=== PATIENT | female | born 1955 | race Caucasian/White ===

== ENCOUNTER 2019-10-12 07:37 | Outpatient (CLI) | payer MEDICARE | END 2019-10-12 07:38 | disposition critical access hospital (66) | LOC: EMS 07:37 | PROVIDERS: ATTEND Surgery | DX: R40.4 Transient alteration of awareness (principal); M54.2 Cervicalgia; R03.0 Elevated blood-pressure reading, without diagnosis of hypertension; R51 Headache; R11.2 Nausea with vomiting, unspecified; R42 Dizziness and giddiness | CPT/HCPCS: A0425; A0429 ==

== ENCOUNTER 2019-10-12 08:12 | Emergency (ER) | payer MEDICARE ==
[2019-10-12] MEDS ORDERED: SODIUM CHLORIDE 0.9% 1,000 ML IV STA (08:34)
--- NOTE | 2019-10-12 08:36 | ED Physician Documentation ---
PD HPI SYNCOPE - Stated complaint Stated Complaint: NECK PX - History obtained from History obtained from: Patient, Family (), EMS - History of Present Illness Witnessed: Witnessed Timing - onset: Yesterday (The patient was brought in by EMS after her called due to a apparent syncopal episode. She apparently was unresponsive after feeling of nausea and has this morning and last night been having some neck pain and some headache. She been having some nausea and vomiting in the last couple of days. The told the medics the patient suddenly went unresponsive and had gurgling type of breathing and was squeezing his whole arm and hand strongly. This lasted for a minute or so and then she seemed to stop and then was opening her eyes but not really talking. By EMS arrival the patient was doing better and was alert and talking to them though a bit sleepy. She remained that way en route without any noted focal deficits. She complained of pain in the neck and back of her head. There is no reported trauma.) Preceding symptoms: Headache (and neck pain), Nausea / vomiting (the past 1-2 days), Light headed (for 1-2 days). No: Chest pain, Abdominal pain Associated symptoms: Headache, Diaphoresis. No: Chest pain, Dyspnea, Abdominal pain Contributing factors: Other (On arrival the patient was talkative and answering questions. She denied any pain in her chest or belly or any blurred vision. She had some nausea feeling and also some pain in her back of her head and neck and some frontal area. She states that had been for a day or 2. She denies any recent change in medicines.). No: Recent med change (The medications with her are for blood pressure lisinopril and propranolol and also apparent the depression of antidepressant and hydroxyzine. They were all filled in mid August and we will find out if they were new prescriptions at that point or renewals.) Injury occurred: No: Fell, Head injury Similar symptoms before: Has not had sx before Recently seen: Not recently seen Review of Systems Unable to obtain: AMS Constitutional: denies: Fever Nose: denies: Rhinorrhea / runny nose, Congestion Throat: denies: Sore throat Cardiac: denies: Chest pain / pressure Respiratory: denies: Cough GI: reports: Nausea, Vomiting. denies: Abdominal Pain, Diarrhea Skin: denies: Rash Neurologic: reports: Syncope (this morning), Headache. denies: Focal weakness, Numbness, Head injury PD PAST MEDICAL HISTORY - Past Medical History Cardiovascular: Hypertension Respiratory: None Neuro: None - Present Medications Home Medications: Ambulatory Orders Medication Instructions Recorded Confirmed Fluoxetine HCl [Prozac] 40 mg PO DAILY 10/12/19 10/12/19 Propranolol [Inderal] 40 mg PO DAILY 10/12/19 10/12/19 hydrOXYzine PAMOATE [Vistaril] 25 mg PO TID PRN 10/12/19 10/12/19 lisinopriL [Lisinopril] 20 mg PO DAILY 10/12/19 10/12/19 - Allergies Allergies/Adverse Reactions: Allergies Allergy/AdvReac Type Severity Reaction Status Date / Time amoxicillin Allergy Rash Verified 10/12/19 09:30 Penicillins Allergy Rash Verified 10/12/19 09:30 PD ED PE NORMAL - Vitals Vital signs reviewed: Yes - General General: Well developed/nourished, Other (complains of some headache. Seems distant in gaze but follow commands. No focal weakness noted. ). No: Alert and oriented X 3 (eyes open, somewhat vacant look. Answers to name and place, but sluggishly. Follow commands. ) - HEENT HEENT: Pharynx benign, Other (normal gag reflex) - Neck Neck: Supple, no meningeal sign, No adenopathy, No JVD, No bruit - Cardiac Cardiac: RRR, No murmur - Respiratory Respiratory: Clear bilaterally - Abdomen Abdomen: Soft, Non tender - Back Back: No CVA TTP - Derm Derm: Normal color, Warm and dry - Extremities Extremities: No deformity, No tenderness to palpate, Normal ROM s pain, No edema, No calf tenderness / cord - Neuro Neuro: Alert and oriented X 3, glass scullion 2-12 intact, No motor deficit, Normal speech Eye Opening: Spontaneous Motor: Obeys Commands Verbal: Confused GCS Score: 14 Results - Vitals Vitals: Oxygen O2 Source Room air - EKG (time done) 08:47 Rate: Rate (enter#) (61) Rhythm: NSR [place]: Normal Intervals: Normal OK QRS: Normal Ischemia: Normal ST segments. No: ST elevation c/w ischemia, ST depression - Labs Labs: Laboratory Tests 10/12/19 10/12/19 10/12/19 08:45 08:45 08:45 WBC 13.2 H RBC 5.28 Hgb 14.9 Hct 45.8 MCV 86.7 MCH 28.2 MCHC 32.5 RDW 14.4 Plt Count 323 MPV 10.2 Neut # (Auto) 9.0 H Lymph # (Auto) 2.9 [place] # (Auto) 0.9 Eos # (Auto) 0.3 Baso # (Auto) 0.1 Absolute Nucleated RBC 0.00 Nucleated RBC % 0.0 PT INR APTT Sodium 135 Potassium 3.1 L Chloride 101 Carbon Dioxide 24 Anion Gap 10.0 BUN 14 Creatinine 0.8 Estimated GFR (MDRD) 72 L Glucose 197 H Calcium 9.4 Magnesium 2.0 Total Bilirubin 0.8 AST 28 ALT 25 Alkaline Phosphatase 54 Troponin I High Sens 17.7 H* Total Protein 8.6 H Albumin 4.4 Globulin 4.2 Albumin/Globulin Ratio 1.0 Lipase 34 Salicylates < 6.0 Acetaminophen < 10 L Ethyl Alcohol < 5.0 10/12/19 08:45 WBC RBC Hgb Hct MCV MCH MCHC RDW Plt Count MPV Neut # (Auto) Lymph # (Auto) [place] # (Auto) Eos # (Auto) Baso # (Auto) Absolute Nucleated RBC Nucleated RBC % PT 12.7 H INR 1.1 APTT 26.9 Sodium Potassium Chloride Carbon Dioxide Anion Gap BUN Creatinine Estimated GFR (MDRD) Glucose Calcium Magnesium Total Bilirubin AST ALT Alkaline Phosphatase Troponin I High Sens Total Protein Albumin Globulin Albumin/Globulin Ratio Lipase Salicylates Acetaminophen Ethyl Alcohol - Rads (name of study) head CT Radiology: EMP read contemporaneously (Frontal bleed with subarachnoid extension. No midline shift. ), See rad report head CTA Radiology: See rad report (results pending) PD MEDICAL DECISION MAKING - ED course Complexity details: re-evaluated patient (still with confusion and slow responses. Normal breathing pattern and gag reflex. BP lower slowly with IV meds), considered differential (Concern for hypertensive emergency versus medication side effect such as serotonin syndrome. Also with the headache and neck pain, would be concern for intra-parenchymal or intra-cranial bleeding. Will get CT scan and to start medication for hypertension and some for Ativan for seizure prophylaxis.), d/w patient, d/w art consultant (Dr. Crowder, Neurology at [facility] - to transfer, and to lower BP with IV meds Nicardipine, and give Keppra 3 g IV (we have 1 G bags, so starting the one and will give more if pt not e nroute as yet).) ED course: Soon after arrival here the patient had a general seizure lasting less than a minute and stopped on its own. She was postictal drowsy and over 5 or 10 minutes started open her eyes to command and following industrial workers to command. She is still confused and somnolent. - Critical Care Time(min): 50 Time Includes: Direct patient care, Reassess patient, Document care, Coordinate care, Medical consult Data interpretation: Labs Procedures excluded from critical care time: EKG Departure - Departure Disposition: 02 Transfer Acute Care Hosp Clinical Impression: Acute intra-cranial hemorrhage, Seizure Hypertension Qualifiers: Hypertension type: unspecified Qualified Code(s): I10 - Essential (primary) hypertension Altered mental state Qualifiers: Altered mental status type: somnolence Qualified Code(s): R40.0 - Somnolence Condition: Stable Record reviewed to determine appropriate education?: Yes Discharge Date/Time: 10/12/19 10:56
[2019-10-12] MEDS ORDERED: IOVERSOL 320 100 ML VIAL IVP ONE ×2 (08:45→11:47)
[2019-10-12 09:08] LABS: BASOPHILS # (AUTO) 0.1 10^3/uL (0.0-0.1); EOSINOPHILS # (AUTO) 0.3 10^3/uL (0.0-0.7); EOSINOPHILS % (AUTO) 1.9 %; HGB - HEMOGLOBIN 14.9 g/dL (12.0-16.0); LYMPHOCYTES # (AUTO) 2.9 10^3/uL (1.5-3.5); LYMPHOCYTES % (AUTO) 21.8 %; MEAN CORPUSCULAR HEMOGLOBIN 28.2 pg (27.0-31.0); MEAN CORPUSCULAR HGB CONC 32.5 g/dL (32.0-36.0); MEAN CORPUSCULAR VOLUME 86.7 fL (81.0-99.0); MEAN PLATELET VOLUME 10.2 fL (7.9-10.8); MONOCYTES # (AUTO) 0.9 10^3/uL (0.0-1.0); MONOCYTES % (AUTO) 6.8 %; PLT - PLATELET COUNT 323 10^3/uL (130-450); RED BLOOD COUNT 5.28 10^6/uL (4.20-5.40); RED CELL DISTRIBUTION WIDTH 14.4 % (12.0-15.0); WHITE BLOOD COUNT 13.2 x10^3/uL (4.8-10.8)
[2019-10-12] MEDS ORDERED: ENALAPRILAT 1.25 MG/ML VIAL IVP STA (09:13)
[2019-10-12] MEDS ORDERED: NICARDIPINE HCL 25 MG in SODIUM CHLORIDE 0.9% 240 ML IV STA (09:17)
[2019-10-12] MEDS ORDERED: MORPHINE 2 MG/ML CARPUJECT IVP STA (09:19)
[2019-10-12 09:22] LABS: ACETAMINOPHEN < 10 ug/mL (10-30); ALBUMIN 4.4 g/dL (3.2-5.5); ALKALINE PHOSPHATASE 54 IU/L (42-121); ALT ALANINE AMINOTRANSFERASE 25 IU/L (10-60); AST ASPARTATE AMINOTRANSFERASE 28 IU/L (10-42); BILIRUBIN,TOTAL 0.8 mg/dL (0.2-1.0); BUN - BLOOD UREA NITROGEN 14 mg/dL (6-20); CALCIUM 9.4 mg/dL (8.5-10.3); CARBON DIOXIDE - CO2 24 mmol/L (21-32); CHLORIDE 101 mmol/L (101-111); CREATININE 0.8 mg/dL (0.4-1.0); GLUCOSE 197 mg/dL (70-100); LIPASE 34 U/L (22-51); SALICYLATE < 6.0 mg/dL; SODIUM 135 mmol/L (135-145); TOTAL PROTEIN 8.6 g/dL (6.7-8.2)
[2019-10-12] MEDS ORDERED: LORazepam 2 MG/ML VIAL IVP STA ×2 (09:25→10:43)
[2019-10-12] MEDS ORDERED: TRANEXAMIC ACID 1,000 MG in SODIUM CHLORIDE 0.9% 100ML 100 ML IV STA (09:55)
[2019-10-12] MEDS ORDERED: levETIRAcetam INJ 1,000 MG in SODIUM CHLORIDE 0.9% 100ML 100 ML IV STA (10:04)
[2019-10-12 10:24] LABS: INR 1.1 (0.8-1.2); PT - PROTHROMBIN TIME 12.7 secs (9.9-12.6)
[2019-10-12 10:31] LABS: PARTIAL THROMBOPLASTIN TIME 26.9 secs (24.9-33.3)
[2019-10-12 10:59] VITALS: BP 171/107
[2019-10-12] MEDS ORDERED: TRANEXAMIC ACID 1,000 MG in SODIUM CHLORIDE 0.9% 100ML 100 ML IV ONE (11:00)
--- NOTE | 2019-10-12 11:51 | CT Report ---
Reason: L sided facial droop Procedure Date: 10/12/2019 Accession Number: [id number] / [id number] Procedure: CT - ANGIO HEAD W/WO CPT Code: Final Report FULL RESULT: EXAM: CT ANGIOGRAM HEAD. CT SCAN OF THE HEAD WITHOUT AND WITH CONTRAST. EXAM DATE: 10/12/2019 10:00 AM CLINICAL HISTORY: Left-sided facial droop. Drooling. In and out of responsiveness. Posturing. Question seizure. COMPARISON: None. TECHNIQUE: - CT Scan Head: Using a multidetector scanner, axial images were acquired from the foramen magnum to the skull vertex prior to and following contrast administration. - CT Angiogram: Using a multidetector scanner, high-resolution axial images were acquired from the skull base through vertex following rapid infusion of intravenous contrast. Reformats: Multiplanar MIP reformats were reconstructed. NASCET criteria used for stenosis measurement. IV Contrast: OPTIRAY 320; [address] mL. In accordance with CT protocol optimization, one or more of the following dose reduction techniques were utilized for this exam: automated exposure control, adjustment of mA and/or KV based on patient size, or use of iterative reconstructive technique. FINDINGS: NON-CONTRAST HEAD: Parenchyma: An arcuate lobar hematoma is seen anteriorly and inferiorly in the right frontal lobe. This measures up to approximately 52 x 48 x 17 mm in size. This extends inferiorly to the gyrus rectus. An oval parenchymal hematoma is seen inferiorly in the left frontal lobe extending to the gyrus rectus. This measures up to approximately 20 x 42 x 27 mm. Extraaxial Spaces: Extensive subarachnoid hemorrhage is seen. This predominates in the basilar cisterns in the supratentorial and infratentorial compartments. Marked subarachnoid hemorrhage is seen in the interhemispheric fissure and sylvian fissures, greater on the left. No subdural or epidural collections identified. Ventricles: Small amount of intraventricular hemorrhage is seen. This is noted layering in the occipital horn of the right lateral ventricle and inferiorly in the fourth ventricle. Mild ventriculomegaly is seen with prominence to the third and lateral ventricles. Sinuses and orbits: Imaged paranasal sinuses, orbits, and mastoids show no significant abnormality. Bones: No evidence of fracture or calvarial defect. Other: None. POST-CONTRAST HEAD: No abnormal parenchymal enhancement. CT ANGIOGRAM HEAD: RIGHT: Internal Carotid artery: No evidence of dissection. No evidence of aneurysm along the intracranial ICA. Anterior Cerebral Artery: Patent without significant stenosis, aneurysm, or vascular malformation. Middle Cerebral Artery: Patent without significant stenosis, aneurysm, or vascular malformation. Posterior Cerebral Artery: Patent without significant stenosis, aneurysm, or vascular malformation. origin is noted as continuation of the P-comm. Posterior Communicating Artery: Patent. No aneurysm. Vertebral Artery: Patent without significant stenosis. No evidence of dissection. The PICA arises from the distal V4 segment. LEFT: Internal Carotid artery: No evidence of dissection. No evidence of aneurysm along the intracranial ICA. Anterior Cerebral Artery: Patent without significant stenosis, aneurysm, or vascular malformation. Middle Cerebral Artery: Patent without significant stenosis, aneurysm, or vascular malformation. Posterior Cerebral Artery: Patent without significant stenosis, aneurysm, or vascular malformation. Posterior Communicating Artery: Not well seen. Vertebral Artery: Small in caliber. Patent without significant stenosis. No evidence of dissection. The PICA is patent. CENTRAL: Anterior Communicating Artery: There is a multilobular 5 x 6 x 7 mm aneurysm projected anteriorly and inferiorly. Basilar Artery: Patent without significant stenosis. No aneurysm. Primarily terminates as the left DAMPENER OPERATOR. DURAL VENOUS SINUSES AND MAJOR CENTRAL VEINS: Patent. IMPRESSION: CT Head: 1. Extensive subarachnoid hemorrhage. This is centered at the suprasellar cistern but is seen diffusely involving basilar cisterns, interhemispheric fissure, and sylvian fissures bilaterally. 2. There are bilateral parenchymal hematomas in the anterior-inferior frontal lobes, larger on the right. 3. Small amount of intraventricular hemorrhage is seen layering in the occipital horn of right lateral ventricle and inferiorly in the fourth ventricle. Mild ventriculomegaly is present. CTA Head: 1. 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 2. Anatomic variant: origin of right DAMPENER OPERATOR as continuation of the P-comm. 3. The right vertebral artery is dominant. 4. No evidence of vasospasm. [facility] The call report notification system was initiated by Dr. Alexx Preston at 11:20 AM on 10/12/2019. The above call report findings were discussed with Rohan Westbrook by Dr. Alexx Preston at 11:23 AM on 10/12/2019.
== END 2019-10-12 10:56 | disposition short-term general hospital (02) ==
LOC: EDBD → ED 08:12
DX: I60.9 Nontraumatic subarachnoid hemorrhage, unspecified (principal); R40.0 Somnolence; R56.9 Unspecified convulsions; I10 Essential (primary) hypertension; I67.1 Cerebral aneurysm, nonruptured
CPT/HCPCS: 36415; 70496; 80053; 83690; 83735; 84484; 85025; 85610; 85730; 93005; 96365; 96375; 99285; 99291; J2060; Q9967; 80307; 80320; 80329